=== PATIENT | female | born 1935 | race Two or more races ===

== ENCOUNTER 2022-12-08 15:42 | Emergency (ER) | payer MEDICARE, OTHER ==
[~2022-12-08] VITALS: Ht 167.6 cm; Wt 65.4 kg
[2022-12-08 16:50] VITALS: BP 122/48
== END 2022-12-08 23:29 | disposition left against medical advice (07) ==
LOC: ER 15:42
DX: S80.01XA Contusion of right knee, initial encounter (principal); S80.11XA Contusion of right lower leg, initial encounter; E11.9 Type 2 diabetes mellitus without complications; I10 Essential (primary) hypertension; W18.09XA Striking against other object with subsequent fall, initial encounter; Y93.89 Activity, other specified; Y92.89 Other specified places as the place of occurrence of the external cause; Y99.8 Other external cause status
CPT/HCPCS: 82962; 93005; 93971